=== PATIENT | male | born 1995 | race Caucasian/White ===

== ENCOUNTER 2016-10-24 13:02 | Emergency (ER) | payer BC ==
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
--- NOTE | 2016-10-24 14:51 | XR ---
Right hand HISTORY: Pain and laceration 3 views of the right hand Soft tissue swelling is noted between the first and second digits. No radiopaque foreign body. Bone m ineralization, joint spaces and alignment are maintained IMPRESSION: Soft tissue swelling. Correlate to exclude abscess, cellulitis.
[2016-10-24] MEDS ORDERED: CEPHALEXIN 500 MG CAP PO STA (15:22)
--- NOTE | 2016-10-24 16:07 | US ---
EXAMINATION TYPE: US extremity nonvasc mass RT DATE OF EXAM: 10/24/2016 3:52 PM COMPARISON: NONE CLINICAL HISTORY: Pain. Rt hand swelling, injury to right hand near first and second digit Ultrasound scanning at the level of patient's injury shows heterogeneous muscle echotexture. No discr ete fluid collection or mass. IMPRESSION: Findings may represent myositis, phlegmon focal abscess is not identified at this time.
[2016-10-24 16:24] VITALS: BP 118/56; PULSE 75; RESP 18; TEMP 97
== END 2016-10-24 16:23 | disposition home or self-care (01) ==
LOC: EC 13:02
DX: S61.411A Laceration without foreign body of right hand, initial encounter (principal); L03.113 Cellulitis of right upper limb; F90.9 Attention-deficit hyperactivity disorder, unspecified type; Z79.899 Other long term (current) drug therapy; W22.8XXA Striking against or struck by other objects, initial encounter
CPT/HCPCS: 99283

== ENCOUNTER → 2019-12-04 | Outpatient (CLI) | payer SELFPAY ==
--- NOTE | 2019-12-04 14:55 | XR ---
AP pelvis HISTORY: Ankylosing spondylitis Single frontal view of the pelvis Bone mineralization shows some suggestion of sclerosis along the sacroiliac joints iliac aspect, join t spaces may be slightly widened at the sacroiliac joints, and alignment is maintained. No bridging o f the pubic symphysis noted. No fracture or dislocation. Soft tissues are unremarkable. IMPRESSION: Correlate for possible sacroiliitis, may be better seen on CT or MRI
== END | disposition home or self-care (01) ==
LOC: RADXRMAIN 14:20
PROVIDERS: ATTEND Internal Medicine Rheumatology
DX: M45.9 Ankylosing spondylitis of unspecified sites in spine (principal)
CPT/HCPCS: 72170

== ENCOUNTER → 2020-01-05 | Outpatient (CLI) | payer SELFPAY ==
--- NOTE | 2020-01-06 06:55 | MR ---
EXAMINATION TYPE: MR sacroiliac joints wo con DATE OF EXAM: 01/05/2020 COMPARISON: Pelvic x-ray December 04, 2019 HISTORY: Ankylosing spondylitis, pain Standard multiplanar, multisequence MRI departmental protocol Multiplanar, multisequence images of the pelvis focused on sacroiliac joints were acquired. FINDINGS: Corresponding to x-ray there is diminished T1 and diminished T2 signal consistent with subc hondral sclerosis bilaterally greater over the iliac bones. There is edematous change involving the b ilateral sacroiliac joints on T2 axial and coronal STIR images with findings extending to the adjace nt sacrum and iliac bones fairly diffusely and bilaterally. Fairly symmetric findings are noted. Postcontrast imaging is not performed to assess for synovitis and/or capsulitis or active inflammator y change. Remainder of visualized pelvis shows partial visualization of suspected hip joint effusions, left gre ater than right at least small to moderate in size on axial images. Coronal images do not include the hip joints. Visualized bladder is unremarkable. IMPRESSION: MRI Confirmation of bilateral sacroiliitis as suspected on recent x-ray as detailed above .
== END | disposition home or self-care (01) ==
LOC: RADMRIMAIN 17:57
PROVIDERS: ATTEND Internal Medicine Rheumatology
DX: M46.1 Sacroiliitis, not elsewhere classified (principal)
CPT/HCPCS: 72195

== ENCOUNTER 2020-05-17 16:39 | Emergency (ER) | payer OTHER ==
[2020-05-17 16:50] VITALS: BP 119/68; PULSE 88; RESP 20; TEMP 98.9
--- NOTE | 2020-05-17 16:52 | ED ---
General Adult HPI - General Chief complaint: Recheck/Abnormal Lab/Rx Stated complaint: Wanting COVID test Time Seen by Provider: 05/17/20 16:51 Source: patient, RN notes reviewed Mode of arrival: ambulatory Limitations: no limitations - History of Present Illness Initial comments: 24-year-old male presented to the emergency department for coronavirus testing. Patient states that he was working with a friend on in which he tested positive on Sunday. Patient has a symptomatic denies fever cough congestion sore throat bodyaches headache dizziness or any other symptoms at this time. - Related Data Home Medications Medication Instructions Recorded Confirmed Lisdexamfetamine Dimesylate 40 mg PO DAILY 01/06/14 10/24/16 [Vyvanse] Previous Rx's Medication Instructions Recorded Cephalexin [Keflex] 500 mg PO Q6HR #40 cap 10/24/16 Allergies Allergy/AdvReac Type Severity Reaction Status Date / Time No Known Allergies Allergy Verified 05/17/20 16:50 Review of Systems ROS Statement: Those systems with pertinent positive or pertinent negative responses have been documented in the HPI. ROS Other: All systems not noted in ROS Statement are negative. Past Medical History Past Medical History: No Reported History History of Any Multi-Drug Resistant Organisms: None Reported Past Surgical History: No Surgical Hx Reported Past Psychological History: ADD/ADHD Smoking Status: Never smoker Past Alcohol Use History: Occasional Past Drug Use History: None Reported General Exam Limitations: no limitations General appearance: alert, in no apparent distress Head exam: Present: atraumatic, normocephalic, normal inspection Eye exam: Present: normal appearance, PERRL, EOMI. Absent: scleral icterus, conjunctival injection, periorbital swelling ENT exam: Present: normal exam, normal oropharynx, mucous membranes moist Neck exam: Present: normal inspection, full ROM. Absent: tenderness, meningismus, lymphadenopathy Respiratory exam: Present: normal lung sounds bilaterally. Absent: respiratory distress, wheezes, rales, rhonchi, stridor Cardiovascular Exam: Present: regular rate, normal rhythm, normal heart sounds. Absent: systolic murmur, diastolic murmur, rubs, gallop, clicks GI/Abdominal exam: Present: normal bowel sounds Course Vital Signs 05/17/20 16:46 Temperature 98.9 F Pulse Rate 88 Respiratory 20 Rate Blood Pressure 119/68 O2 Sat by Pulse 99 Oximetry Medical Decision Making - Medical Decision Making patient did have testing, pending results. Patient is a symptomatic. Disposition Clinical Impression: Exposure to 2019 novel coronavirus Disposition: HOME SELF-CARE Condition: Stable Additional Instructions: Please return to the Emergency Department if symptoms worsen or any other concerns. Is patient prescribed a controlled substance at d/c from ED?: No Referrals: Perry Luna Jr, DO [Primary Care Provider] - 1-2 days Time of Disposition: 16:52
== END 2020-05-17 17:16 | disposition home or self-care (01) ==
LOC: EC 16:39
DX: Z03.818 Encounter for observation for suspected exposure to other biological agents ruled out (principal); F90.9 Attention-deficit hyperactivity disorder, unspecified type; Z79.899 Other long term (current) drug therapy
CPT/HCPCS: 99283; U0003

== ENCOUNTER 2020-09-25 04:31 | Emergency (ER) | payer SELFPAY ==
[2020-09-25] MEDS ORDERED: HYDROmorphone 0.5 MG/0.5 ML SYRINGE IM STA ×2 (05:30→06:22)
[2020-09-25] MEDS ORDERED: KETOROLAC 15 MG/ML 1 ML VIAL IM STA (05:30)
--- NOTE | 2020-09-25 05:48 | ED ---
General Adult HPI - General Chief complaint: Back Pain/Injury Stated complaint: sciatic nerve pain Time Seen by Provider: 09/25/20 05:20 Source: patient Mode of arrival: wheelchair Limitations: no limitations - History of Present Illness Initial comments: This patient is 24-year-old man who presents with left lower extremity pain. The patient states that it does feel like an exacerbation of his chronic left leg pain. The patient has been taking prednisone. Patient notes that he also is having reaccumulation of fluid near his left knee. He does have this periodically drained by Dr. Noel or Dr. Luna. The patient indicates pain from the left buttock down to the left knee and states that the pain also radiates down towards the heel. No weakness or numbness. No change in bladder or bowel function. No saddle anesthesia. Onset/Timin -: days(s) Location: left, lower extremity Quality: aching Consistency: constant Improves with: none Worsens with: none Associated Symptoms: denies other symptoms Treatments Prior to Arrival: other (Prednisone) - Related Data Home Medications Medication Instructions Recorded Confirmed Lisdexamfetamine Dimesylate 40 mg PO DAILY 01/06/14 10/24/16 [Vyvanse] Previous Rx's Medication Instructions Recorded Cephalexin [Keflex] 500 mg PO Q6HR #40 cap 10/24/16 HYDROcodone/APAP 5-325MG [[place] 1 tab PO Q6HR PRN 3 Days #12 tab 09/25/20 5-325] Ibuprofen [Motrin] 600 mg PO Q8HR PRN #20 tab 09/25/20 Allergies Allergy/AdvReac Type Severity Reaction Status Date / Time No Known Allergies Allergy Verified 09/25/20 04:39 Review of Systems ROS Statement: Those systems with pertinent positive or pertinent negative responses have been documented in the HPI. ROS Other: All systems not noted in ROS Statement are negative. Constitutional: Denies: fever, chills, weakness Respiratory: Denies: cough, dyspnea Cardiovascular: Denies: chest pain, palpitations, edema, syncope Gastrointestinal: Denies: abdominal pain, vomiting, diarrhea, constipation Genitourinary: Denies: dysuria, hematuria, testicular pain, testicular mass Musculoskeletal: Reports: as per HPI Skin: Denies: rash Neurological: Denies: headache, weakness, numbness, paresthesias Past Medical History Past Medical History: No Reported History Additional Past Medical History / Comment(s): Ankylosing Spondylitis History of Any Multi-Drug Resistant Organisms: None Reported Past Surgical History: No Surgical Hx Reported Past Psychological History: ADD/ADHD Smoking Status: Never smoker Past Alcohol Use History: Occasional Past Drug Use History: None Reported General Exam Limitations: no limitations General appearance: alert, in no apparent distress Head exam: Present: atraumatic, normocephalic Respiratory exam: Present: normal lung sounds bilaterally. Absent: respiratory distress, wheezes, rales, rhonchi, stridor Cardiovascular Exam: Present: regular rate, normal rhythm, normal heart sounds. Absent: systolic murmur, diastolic murmur, rubs, gallop GI/Abdominal exam: Present: soft. Absent: distended, tenderness, guarding, rebound, rigid, mass Extremities exam: Present: normal capillary refill, other (Patient has fluid collection superior and medial to the left knee joint. No erythema or warmth. Minimal tenderness.). Absent: tenderness, pedal edema, calf tenderness Back exam: Present: normal inspection. Absent: paraspinal tenderness, vertebral tenderness Neurological exam: Present: alert. Absent: motor sensory deficit Skin exam: Present: warm, dry, intact, normal color. Absent: rash Course Vital Signs 09/25/20 09/25/20 04:33 05:45 Temperature 98.3 F Pulse Rate 90 89 Respiratory 18 22 Rate Blood Pressure 140/74 145/95 O2 Sat by Pulse 99 97 Oximetry Disposition Clinical Impression: Sciatica Disposition: HOME SELF-CARE Condition: Good Instructions (If sedation given, give patient instructions): Lumbar Radiculopathy (ED) Prescriptions: Ibuprofen [Motrin] 600 mg PO Q8HR PRN #20 tab PRN Reason: Pain HYDROcodone/APAP 5-325MG [[place] 5-325] 1 tab PO Q6HR PRN 3 Days #12 tab PRN Reason: Pain Is patient prescribed a controlled substance at d/c from ED?: Yes When asked, does pt state using other controlled substances?: No If prescribed controlled substance>3 days was MAPS reviewed?: Prescribed <3 Days If opioid is for acute pain is fill amount 7 days or less?: Yes If Rx opioid, was Start Talking consent form obtained?: Yes Referrals: Perry Luna Jr, DO [Primary Care Provider] - 1-2 days
[2020-09-25 06:06] VITALS: PULSE 89
[2020-09-25 06:50] VITALS: BP 138/80; RESP 20; TEMP 98.4
== END 2020-09-25 06:50 | disposition home or self-care (01) ==
LOC: EC 04:31
DX: M54.30 Sciatica, unspecified side (principal); Z79.899 Other long term (current) drug therapy
CPT/HCPCS: 99283; 96372; J1885; J1170

== ENCOUNTER 2024-04-19 19:11 | Emergency (ER) | payer OTHER ==
[2024-04-19 19:37] VITALS: TEMP 98.9
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
[2024-04-19] MEDS: TOPICAL SKIN ADHESIVE 1 EACH AMP TOPICAL ONE (20:52)
[2024-04-19 21:38] VITALS: BP 122/80; PULSE 78; RESP 16
== END 2024-04-19 21:38 | disposition home or self-care (01) ==
LOC: EC 19:11
CPT/HCPCS: 70450; 70486; 71046; 72125; 99284